=== PATIENT | female | born 1975 | race Caucasian/White ===

== ENCOUNTER 2020-10-08 17:24 | Emergency (ER) | payer OTHER ==
[2020-10-08 18:49] LABS: HEMOGLOBIN 12.7 gm/dl (12.3-15.3); RED BLOOD COUNT 3.98 M/UL (4.00-5.10); WHITE BLOOD COUNT 14.8 K/UL (4.5-11.0)
[2020-10-08 19:12] LABS: BUN/CREATININE RATIO 20 (0-10)
[2020-10-08] MEDS ORDERED: PREDNISONE 20 M20 MG PO (20:03)
[2020-10-08] MEDS ORDERED: VIBRAMYCIN100 MG PO (20:03)
== END 2020-10-08 21:40 | disposition home or self-care (01) ==
LOC: ER1 17:24
PROVIDERS: Emergency Medicine
DX: J44.1 Chronic obstructive pulmonary disease with (acute) exacerbation (principal); I50.9 Heart failure, unspecified; Z20.822 Contact with and (suspected) exposure to COVID-19
CPT/HCPCS: 71045; 80053; 82550; 82553; 83874; 83880; 84484; 85025; 93005; 94664; 96374; 99285; J1100; U0002

== ENCOUNTER → 2020-10-30 | Outpatient (CLI) | payer OTHER ==
[~2020-10-30] MED LIST: PREDNISONE 20 M20 MG PO; VIBRAMYCIN100 MG PO
== END ==
LOC: KOH-I 11:28
DX: J44.1 Chronic obstructive pulmonary disease with (acute) exacerbation (principal); J18.9 Pneumonia, unspecified organism
CPT/HCPCS: 71046

== ENCOUNTER → 2021-06-23 | Outpatient (CLI) | payer MEDICARE, OTHER | LOC: KOH-I 12:37 | DX: M47.817 Spondylosis without myelopathy or radiculopathy, lumbosacral region (principal); M47.816 Spondylosis without myelopathy or radiculopathy, lumbar region | CPT/HCPCS: 72070; 72100 ==

== ENCOUNTER → 2022-01-25 | Outpatient (CLI) | payer MEDICARE, OTHER | LOC: KOH-I 14:30 | DX: M47.26 Other spondylosis with radiculopathy, lumbar region (principal); M48.061 Spinal stenosis, lumbar region without neurogenic claudication | CPT/HCPCS: 72148 ==

== ENCOUNTER 2022-02-08 11:47 | Inpatient (IN) | payer MEDICARE, OTHER ==
[~2022-02-08] VITALS: Ht 154.9 cm; Wt 51.4 kg
[2022-02-08 12:24] LABS: HEMOGLOBIN 17.5 gm/dl (12.3-15.3); RED BLOOD COUNT 5.56 M/UL (4.00-5.10)
[2022-02-08 12:49] LABS: BUN/CREATININE RATIO 10 (0-10)
[2022-02-08] MEDS ORDERED: HYDROCODON-ACE1 EAC6 PO (16:39)
[2022-02-08] MEDS ORDERED: GABAPENTIN600 MG PO (16:39)
[2022-02-08] MEDS ORDERED: PROAIR HFA8.5 GM INH (16:40)
[2022-02-08] MEDS ORDERED: AMITRIPTYLINE100 MG PO (16:40)
[2022-02-08] MEDS ORDERED: ALPRAZOLAM1 MG PO (16:40)
[2022-02-08] MEDS ORDERED: AMLODIPINE BESY10 MG PO (16:40)
[2022-02-08] MEDS ORDERED: LISINOPRIL-HCT1 EAC1 PO (16:41)
[2022-02-08] MEDS ORDERED: RIZATRIPTAN10 M1 PO (16:41)
[2022-02-09 03:36] LABS: WHITE BLOOD COUNT 10.8 K/UL (4.5-11.0)
[2022-02-09 03:43] LABS: HEMOGLOBIN 14.5 gm/dl (12.3-15.3); RED BLOOD COUNT 4.8 M/UL (4.00-5.10)
[2022-02-09 04:19] LABS: BUN/CREATININE RATIO 23 (0-10)
[2022-02-10 04:00] LABS: HEMOGLOBIN 14.9 gm/dl (12.3-15.3); RED BLOOD COUNT 4.9 M/UL (4.00-5.10)
[2022-02-10 04:08] LABS: WHITE BLOOD COUNT 15.1 K/UL (4.5-11.0)
[2022-02-10 05:09] LABS: BUN/CREATININE RATIO 32 (0-10)
[2022-02-11 06:33] LABS: HEMOGLOBIN 14.6 gm/dl (12.3-15.3); RED BLOOD COUNT 4.77 M/UL (4.00-5.10); WHITE BLOOD COUNT 14.5 K/UL (4.5-11.0)
[2022-02-11 06:56] LABS: BUN/CREATININE RATIO 32 (0-10)
[2022-02-12 02:19] LABS: RED BLOOD COUNT 4.58 M/UL (4.00-5.10); WHITE BLOOD COUNT 13.2 K/UL (4.5-11.0)
[2022-02-12 02:36] LABS: BUN/CREATININE RATIO 30 (0-10)
[2022-02-13 01:31] LABS: HEMOGLOBIN 14.5 gm/dl (12.3-15.3); RED BLOOD COUNT 4.82 M/UL (4.00-5.10); WHITE BLOOD COUNT 10.5 K/UL (4.5-11.0)
[2022-02-13 01:49] LABS: BUN/CREATININE RATIO 28 (0-10)
--- NOTE | 2022-02-13 16:52 | NUR ---
[employer] NURSE STATED PT HAD A PERIOD OF OXYGEN DESATURATION <88% FROM 9827-2106 ON O2 @ 3L NC. THE PULSE OX BRACELET PROVIEDED BY THE COMPANY WAS ON AT THIS TIME. MARISA.
[2022-02-15 03:46] LABS: HEMOGLOBIN 13.9 gm/dl (12.3-15.3); RED BLOOD COUNT 4.62 M/UL (4.00-5.10); WHITE BLOOD COUNT 11.8 K/UL (4.5-11.0)
[2022-02-15 04:12] LABS: BUN/CREATININE RATIO 43 (0-10)
[2022-02-16] MEDS ORDERED: LOPRESSOR 25 MG25 MG PO (13:51)
[2022-02-16] MEDS ORDERED: MEDROL DOSEPAK 24 MG PO (13:51)
[2022-02-16] MEDS ORDERED: LEVALBUTER1.25 MG/3 NEB (13:51)
[2022-02-16] MEDS ORDERED: PROTONIX 40 MG40 M1 PO (13:51)
[2022-02-16] MEDS ORDERED: IPRATROPIU0.2 MG/1 M NEB (13:51)
[2022-02-16] MEDS ORDERED: BUDESONIDE0.5 MG/2 M NEB (13:51)
[2022-02-16] MEDS ORDERED: DOXYCYCLINE HY100 M2 PO (15:21)
[2022-02-16] MEDS ORDERED: BROVANA15 MCG/2 M NEB (15:21)
[2022-02-16] MEDS ORDERED: SPIRIVA HANDIH18 MCG INH (15:21)
[2022-02-16] MEDS ORDERED: OMNICEF 300 MG300 MG PO (15:21)
--- NOTE | 2022-02-17 14:11 | NUR ---
CALLED LA[facility]EN AT DISCHARGE TO NOTIFY THAT PATIENT HAD BEEN DISCHARGED SO THAT HOME EDUCATION ON HER BIPAP COULD BE ARRANGED. SPOKE WITH RACHEL AT 1408.
== END 2022-02-17 14:08 | disposition home or self-care (01) | DRG 177 ==
LOC: ER1 11:47 → MED SURG 4 16:28 → CDU 16:28 → MED SURG 4 17:10
PROVIDERS: Internal Medicine; Physician Assistant; ADMIT Internal Medicine Infectious Disease
PROC: B24BZZZ Ultrasonography of Heart with Aorta (ICD-10-PCS; principal; 2022-02-09)
PROC: 5A09357 Assistance with Respiratory Ventilation, Less than 24 Consecutive Hours, Continuous Positive Airway Pressure (ICD-10-PCS; 2022-02-11)
PROC: 5A09357 Assistance with Respiratory Ventilation, Less than 24 Consecutive Hours, Continuous Positive Airway Pressure (ICD-10-PCS; 2022-02-11)
PROC: 5A09357 Assistance with Respiratory Ventilation, Less than 24 Consecutive Hours, Continuous Positive Airway Pressure (ICD-10-PCS; 2022-02-11)
PROC: 5A09357 Assistance with Respiratory Ventilation, Less than 24 Consecutive Hours, Continuous Positive Airway Pressure (ICD-10-PCS; 2022-02-16)
PROC: 5A09357 Assistance with Respiratory Ventilation, Less than 24 Consecutive Hours, Continuous Positive Airway Pressure (ICD-10-PCS; 2022-02-17)
DX: J69.0 Pneumonitis due to inhalation of food and vomit (principal); J96.21 Acute and chronic respiratory failure with hypoxia; Z20.822 Contact with and (suspected) exposure to COVID-19; J96.22 Acute and chronic respiratory failure with hypercapnia; M48.54XA Collapsed vertebra, not elsewhere classified, thoracic region, initial encounter for fracture; J15.9 Unspecified bacterial pneumonia; F17.210 Nicotine dependence, cigarettes, uncomplicated; F41.9 Anxiety disorder, unspecified; F32.A Depression, unspecified; G89.29 Other chronic pain; I08.1 Rheumatic disorders of both mitral and tricuspid valves; M54.9 Dorsalgia, unspecified; K21.9 Gastro-esophageal reflux disease without esophagitis; I10 Essential (primary) hypertension; J43.9 Emphysema, unspecified; Z98.891 History of uterine scar from previous surgery; Z98.51 Tubal ligation status; Z83.3 Family history of diabetes mellitus; Z82.49 Family history of ischemic heart disease and other diseases of the circulatory system; Z88.5 Allergy status to narcotic agent
CPT/HCPCS: ECHO; 0240U; 36415; 36600; 71045; 80048; 80053; 82550; 82553; 82803; 83605; 83880; 84484; 85025; 85379; 86140; 87040; 93005; 93306; 93970; 94640; 94660; 94664; 94760; 96374; 96375; 99285; J0456; J0696; J1650; J1885; J2270; J2543; J2920; J2930; J7030; Q9967

== ENCOUNTER 2022-05-05 15:51 | Inpatient (IN) | payer MEDICARE, OTHER ==
[~2022-05-05] VITALS: Ht 154.9 cm; Wt 59.9 kg
[~2022-05-05 15:51] MED LIST changes: +ALPRAZOLAM1 MG PO; +AMITRIPTYLINE100 MG PO; +AMLODIPINE BESY10 MG PO; +BROVANA15 MCG/2 M NEB; +BUDESONIDE0.5 MG/2 M NEB; +DOXYCYCLINE HY100 M2 PO; +GABAPENTIN600 MG PO; +HYDROCODON-ACE1 EAC6 PO; +IPRATROPIU0.2 MG/1 M NEB; +LEVALBUTER1.25 MG/3 NEB; +LISINOPRIL-HCT1 EAC1 PO; +LOPRESSOR 25 MG25 MG PO; +MEDROL DOSEPAK 24 MG PO; +OMNICEF 300 MG300 MG PO; +PROAIR HFA8.5 GM INH; +PROTONIX 40 MG40 M1 PO; +SPIRIVA HANDIH18 MCG INH
[2022-05-05 17:41] LABS: HEMOGLOBIN 16.6 gm/dl (12.3-15.3); RED BLOOD COUNT 5.11 M/UL (4.00-5.10); WHITE BLOOD COUNT 10.6 K/UL (4.5-11.0)
[2022-05-05 18:21] LABS: BUN/CREATININE RATIO 21 (0-10)
[2022-05-05] MEDS ORDERED: TOPAMAX50 MG PO ×2 (20:39→20:54)
[2022-05-05] MEDS ORDERED: PROAIR HFA8.5 GM INH (20:41)
[2022-05-05] MEDS ORDERED: RIZATRIPTAN10 M1 PO (20:51)
[2022-05-05] MEDS ORDERED: METOPROLOL TART25 MG PO (20:53)
[2022-05-05] MEDS ORDERED: PROTONIX40 MG PO (20:54)
--- NOTE | 2022-05-06 05:34 | NUR ---
JOEY ASSISTED PT ONTO BEDPAN. JOEY STATED THAT SHE SAW A BLUE PILL FALL OUT OF THE PATIENT'S HAND WHILE ASSISTING PT WITH BEDPAN. PILL WAS COLLECTED AND SHOWN TO RN. PILL WAS IDENTIFIED ALPRAZOLAM 1MG.
--- NOTE | 2022-05-06 05:46 | NUR ---
WHILE CLEANING PATIENT UP, ANOTHER BLUE PILL WAS FOUND IN PATIENT'S BED. PT WAS ASKED BY RN IF SHE WAS TAKING HER OWN MEDICINE FROM HOME. PT STATES "NO, THAT SHE KNOWS SHE'S NOT SUPPOSED TO TAKE HER OWN MEDICINE WHILE IN THE HOSPITAL." PT INSTRUCTED NURSE TO PUT THE PILL BACK IN HER BAG.
[2022-05-06 07:01] LABS: HEMOGLOBIN 14.9 gm/dl (12.3-15.3); RED BLOOD COUNT 4.62 M/UL (4.00-5.10)
[2022-05-06 07:16] LABS: BUN/CREATININE RATIO 25 (0-10)
--- NOTE | 2022-05-06 13:33 | NUR ---
05/06/[address] PEARL HERE TO DO BLOCK
[2022-05-06] MEDS ORDERED: ENDOCET 10-3251 EACH PO (14:51)
[2022-05-06] MEDS ORDERED: LOVENOX40 MG/0.4 SQ (14:51)
[2022-05-06 22:25] LABS: HEMOGLOBIN 14.3 gm/dl (12.3-15.3)
[2022-05-07 02:10] LABS: HEMOGLOBIN 12.3 gm/dl (12.3-15.3); RED BLOOD COUNT 3.85 M/UL (4.00-5.10); WHITE BLOOD COUNT 10.1 K/UL (4.5-11.0)
[2022-05-07 02:32] LABS: BUN/CREATININE RATIO 29 (0-10)
[2022-05-08 01:32] LABS: HEMOGLOBIN 9.7 gm/dl (12.3-15.3); WHITE BLOOD COUNT 10.9 K/UL (4.5-11.0)
[2022-05-08 01:36] LABS: RED BLOOD COUNT 2.97 M/UL (4.00-5.10)
[2022-05-08 01:50] LABS: BUN/CREATININE RATIO 40 (0-10)
[2022-05-09 05:18] LABS: HEMOGLOBIN 8.7 gm/dl (12.3-15.3); RED BLOOD COUNT 2.71 M/UL (4.00-5.10); WHITE BLOOD COUNT 8.4 K/UL (4.5-11.0)
[2022-05-09 05:52] LABS: BUN/CREATININE RATIO 32 (0-10)
[2022-05-10 03:54] LABS: HEMOGLOBIN 8.6 gm/dl (12.3-15.3); RED BLOOD COUNT 2.66 M/UL (4.00-5.10); WHITE BLOOD COUNT 7.5 K/UL (4.5-11.0)
[2022-05-10 04:13] LABS: BUN/CREATININE RATIO 27 (0-10)
[2022-05-11 03:54] LABS: HEMOGLOBIN 9.1 gm/dl (12.3-15.3); RED BLOOD COUNT 2.83 M/UL (4.00-5.10); WHITE BLOOD COUNT 6.8 K/UL (4.5-11.0)
[2022-05-11 04:13] LABS: BUN/CREATININE RATIO 36 (0-10)
[2022-05-11] MEDS ORDERED: FERROUS SULFAT325 M2 PO (20:15)
== END 2022-05-11 17:32 | disposition home or self-care (01) | DRG 481 ==
LOC: ER1 15:51 → CDU 18:25 → PROG CARE 18:25 → CCU 18:25 → PROG CARE 05-06 19:22 → CCU 05-07 10:26
PROVIDERS: Orthopaedic Surgery; Preventive Medicine Occupational Medicine; ADMIT Internal Medicine
PROC: 5A09357 Assistance with Respiratory Ventilation, Less than 24 Consecutive Hours, Continuous Positive Airway Pressure (ICD-10-PCS; 2022-05-06)
PROC: 0QS604Z Reposition Right Upper Femur with Internal Fixation Device, Open Approach (ICD-10-PCS; principal; 2022-05-06 16:00)
PROC: 5A09357 Assistance with Respiratory Ventilation, Less than 24 Consecutive Hours, Continuous Positive Airway Pressure (ICD-10-PCS; 2022-05-07)
PROC: 5A09357 Assistance with Respiratory Ventilation, Less than 24 Consecutive Hours, Continuous Positive Airway Pressure (ICD-10-PCS; 2022-05-07)
PROC: 5A09357 Assistance with Respiratory Ventilation, Less than 24 Consecutive Hours, Continuous Positive Airway Pressure (ICD-10-PCS; 2022-05-10)
PROC: 5A09357 Assistance with Respiratory Ventilation, Less than 24 Consecutive Hours, Continuous Positive Airway Pressure (ICD-10-PCS; 2022-05-11)
DX: S72.011A Unspecified intracapsular fracture of right femur, initial encounter for closed fracture (principal); L76.32 Postprocedural hematoma of skin and subcutaneous tissue following other procedure; Z20.822 Contact with and (suspected) exposure to COVID-19; G62.9 Polyneuropathy, unspecified; I10 Essential (primary) hypertension; G47.33 Obstructive sleep apnea (adult) (pediatric); F41.9 Anxiety disorder, unspecified; G89.29 Other chronic pain; M54.9 Dorsalgia, unspecified; D50.9 Iron deficiency anemia, unspecified; F32.A Depression, unspecified; K21.9 Gastro-esophageal reflux disease without esophagitis; F17.210 Nicotine dependence, cigarettes, uncomplicated; J44.9 Chronic obstructive pulmonary disease, unspecified; W18.30XA Fall on same level, unspecified, initial encounter; Y83.8 Other surgical procedures as the cause of abnormal reaction of the patient, or of later complication, without mention of misadventure at the time of the procedure; Z99.81 Dependence on supplemental oxygen; Z82.49 Family history of ischemic heart disease and other diseases of the circulatory system; Z98.51 Tubal ligation status
CPT/HCPCS: 36415; 36600; 71045; 73502; 73700; 76000; 80048; 80076; 82607; 82728; 82746; 82803; 83036; 83540; 83550; 83735; 83880; 84439; 84443; 85014; 85018; 85025; 85610; 85730; 86140; 93005; 94640; 94660; 94664; 94760; 94762; 96374; 96375; 97116-GP-CQ; 97162; 97165; 97530; 97530-GP-CQ; 97535; 99285; C1713; J0690; J1100; J1170; J2270; J2405; J2704; J2795

== ENCOUNTER → 2022-05-20 | Outpatient (CLI) | payer MEDICARE, OTHER ==
[~2022-05-20] MED LIST changes: +ENDOCET 10-3251 EACH PO; +FERROUS SULFAT325 M2 PO; +LOVENOX40 MG/0.4 SQ; +METOPROLOL TART25 MG PO; +PROTONIX40 MG PO; +RIZATRIPTAN10 M1 PO; +TOPAMAX50 MG PO
[2022-05-20 12:44] LABS: HEMOGLOBIN 12.7 gm/dl (12.3-15.3); RED BLOOD COUNT 3.91 M/UL (4.00-5.10); WHITE BLOOD COUNT 9.7 K/UL (4.5-11.0)
== END ==
LOC: LAB 12:23
PROVIDERS: Internal Medicine
DX: D64.9 Anemia, unspecified (principal)
CPT/HCPCS: 36415; 85025